=== PATIENT | female | born 1980 | race Caucasian/White ===

== ENCOUNTER 2018-05-22 02:57 | Emergency (ER) | payer MEDICAID ==
[2018-05-22] MEDS: DIAZEPAM 5 MG TAB PO (04:40)
[2018-05-22] MEDS: ONDANSETRON (ODT) 4 MG TAB ODT (04:40)
[2018-05-22] MEDS: RANITIDINE 150 MG TAB PO (04:41)
[2018-05-22] MEDS: LIDOCAINE/MYLANTA 40 ML BTL PO (04:41)
== END 2018-05-22 07:20 | disposition home or self-care (01) ==
LOC: FTE 02:57
DX: K52.9 Noninfective gastroenteritis and colitis, unspecified (principal)
CPT/HCPCS: 99283; Z7502

== ENCOUNTER 2019-01-02 09:23 | Emergency (ER) | payer MEDICAID ==
[2019-01-02] MEDS: ONDANSETRON (ODT) 4 MG TAB ODT (10:14)
[2019-01-02] MEDS: ACETAMINOPHEN 325 MG TAB PO (10:14)
== END 2019-01-02 10:28 | disposition home or self-care (01) ==
LOC: FTE 09:23
DX: O99.89 Other specified diseases and conditions complicating pregnancy, childbirth and the puerperium (principal); R11.0 Nausea; R51 Headache; Z3A.01 Less than 8 weeks gestation of pregnancy
CPT/HCPCS: 99283; Z7610